=== PATIENT | male | born 1935 | race Caucasian/White ===

== ENCOUNTER 2017-01-01 11:13 | Observation (INO) | payer OTHER ==
[2017-01-01] MEDS ORDERED: ceFAZolin 2 GM/DEXTROSE 100 ML IV ONE (12:09)
--- NOTE | 2017-01-01 12:27 | PDHPUP ---
History & Physical Update H&P update statement: This history and physical update is based on an assessment of the patient which was completed after admission or registration (within 24 hours), but prior to the surgery/procedure. H&P update: H&P reviewed & patient examined, no change in patient's condition since H&P completed
[2017-01-01] MEDS ORDERED: LR 1,000 ML IV ONE (12:29)
[2017-01-01] MEDS ORDERED: LIDOCAINE 1% 2 ML INJ ID PRN (12:29)
[2017-01-01] MEDS ORDERED: THROMBIN (BOVINE) 5,000 UNIT VIAL TP ONE (14:00)
[2017-01-01] MEDS ORDERED: CHLORHEXIDINE GLUC HIBICLENS 118 ML BTL TP ONE (14:00)
[2017-01-01] MEDS ORDERED: DEPO METHYLPREDNISOLONE 40 MG/ML SDV ONE (14:01)
[2017-01-01] MEDS ORDERED: BACITRACIN 50,000 UNITS/10 ML SYR IRR ONE (14:01)
[2017-01-01] MEDS ORDERED: BUPIVACAINE/EPI 0.25% 30 ML SDV ONE (14:01)
[2017-01-01] MEDS ORDERED: PROPOFOL 200 MG/20 ML VIAL ONE ×2 (14:22→16:27)
[2017-01-01] MEDS ORDERED: ROCURONIUM 50 MG/5 ML VIAL ONE (14:22)
[2017-01-01] MEDS ORDERED: DEXAMETHASONE 4 MG/ML VIAL ONE (14:22)
[2017-01-01] MEDS ORDERED: fentaNYL 100 MCG/2 ML INJ ONE ×3 (14:22→17:35)
[2017-01-01] MEDS ORDERED: PROPOFOL/EMULSION 500 MG/50 ML BOTTLE IV ONE (14:22)
[2017-01-01] MEDS ORDERED: LIDOCAINE 2% 5 ML SDV ONE (14:22)
[2017-01-01] MEDS ORDERED: PHENYLEPHRINE HCL 100 MCG/ML SYR ONE (14:30)
[2017-01-01] MEDS ORDERED: ONDANSETRON DISINTEGRATING 4 MG TAB PO PRN (14:46)
[2017-01-01] MEDS ORDERED: oxyCODONE IR 5 MG TAB PO PRN (14:46)
[2017-01-01] MEDS ORDERED: IBUPROFEN 200 MG TAB PO PRN (14:46)
[2017-01-01] MEDS ORDERED: ACETAMINOPHEN 325 MG TAB PO PRN (14:46)
[2017-01-01] MEDS ORDERED: ONDANSETRON 4 MG/2 ML VIAL IVP PRN ×2 (14:46→14:58)
[2017-01-01] MEDS ORDERED: POLYETHYLENE GLYCOL 3350 17 GM PKT PO PRN (14:46)
[2017-01-01] MEDS ORDERED: NALOXONE HCL 0.4 MG/ML INJ IVP PRN ×2 (14:46→14:58)
[2017-01-01] MEDS ORDERED: MAGNESIUM HYDROXIDE 30 ML UDCUP PO PRN (14:46)
[2017-01-01] MEDS ORDERED: LACTULOSE 20 GM/30 ML UDCUP PO PRN (14:46)
[2017-01-01] MEDS ORDERED: BISACODYL 10 MG SUPP PR PRN (14:46)
[2017-01-01] MEDS ORDERED: METHOCARBAMOL 750 MG TAB PO PRN (14:46)
[2017-01-01] MEDS ORDERED: diphenhydrAMINE 25 MG CAP PO PRN (14:46)
[2017-01-01] MEDS ORDERED: morphINE PCA 30 MG/30 ML PCA IV PRN (14:46)
[2017-01-01] MEDS ORDERED: LR 500 ML IV PRN (14:58)
[2017-01-01] MEDS ORDERED: ACETAMINOPHEN 500 MG TAB PO PRN (14:58)
[2017-01-01] MEDS ORDERED: OXYCODONE/APAP 5/325 TAB PO PRN (14:58)
[2017-01-01] MEDS ORDERED: PROMETHAZINE HCL 25 MG/ML INJ IVP PRN (14:58)
[2017-01-01] MEDS ORDERED: HYDROCODONE/APAP 5/325 TAB PO PRN (14:58)
[2017-01-01] MEDS ORDERED: fentaNYL 100 MCG/2 ML INJ IVP PRN (14:58)
--- NOTE | 2017-01-01 14:58 | PDANEPAE ---
ANE Past Medical History - Cardiovascular History Hx Hypertension: Yes Hx Arrhythmias: No Hx Chest Pain: No Hx Coronary Artery / Peripheral Vascular Disease: No Hx CHF / Valvular Disease: No Hx Palpitations: No Cardiovascular History Comment: statin Rx - Pulmonary History Hx COPD: No Hx Asthma/Reactive Airway Disease: No Hx Recent Upper Respiratory Infection: No Hx Oxygen in Use at Home: No Hx Sleep Apnea: No Sleep Apnea Screening Result - Last Documented: Negative - Neurologic History Hx Cerebrovascular Accident: No Hx Seizures: No Hx Dementia: No - Endocrine History Hx Diabetes: Yes Hypothyroid: No Hyperthyroid: No 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 Low back pain radiates from bilat legs to bilat feet. - Cancer History Hx Cancer: Yes Cancer History Comment: bladder - Congenital Disorder History Hx Congenital Disorders: No - GI History GERD: no Hx Gastrointestinal Disorders: No - Other Health History Other Health History: gout - Chronic Pain History Chronic Pain: Yes (back,legs,ft) - Surgical History Prior Surgeries: L total knee 2006. TURBT 2012. L Rotator cuff sx. surgery on R elbow. tonsillectomy (at home) age 5 ANE Review of Systems - Exercise capacity METS (RN): 4 METS ANE Patient History - Allergies Allergies/Adverse Reactions: No Known Allergies Allergy (Unverified 12/19/16 11:40) - Home Medications Home Medications: Allopurinol [Allopurinol 100 MG (*)] 100 mg PO DAILY@79912/25/16 [Last Taken 01/01/17 05:00] Atenolol [Tenormin 100 mg (*)] 100 mg PO DAILY@79912/25/16 [Last Taken 05:00] Diltiazem HCl [Cardizem Cd] 240 mg PO DAILY@79912/25/16 [Last Taken 01/01/17 05:00] Furosemide [Lasix 20 MG (*)] 20 mg PO DAILY@79912/25/16 [Last Taken 12/31/16] Losartan Potassium [Cozaar] 100 mg PO DAILY 12/25/16 [Last Taken 01/01/17 05:00] Potassium Chloride [Klor-Con 10] 10 meq PO DAILY@0800 12/25/16 [Last Taken 12/30] Pravastatin Sodium 20 mg PO HS 12/25/16 [Last Taken 12/31/16] metFORMIN HCL [Glucophage 850 mg (*)] 850 mg PO BID@0800,1800 12/25/16 [Last Taken 12/30/16] - NPO status NPO Since - Liquids (Date): 01/01/17 NPO Since - Liquids (Time): 06:00 NPO Since - Solids (Date): 12/31/16 NPO Since - Solids (Time): 18:30 - Anes Hx Anes Hx: post operative nausea - Smoking Hx Smoking Status: Former smoker Marijuana use: No - Family Anes Hx Family Anes Hx: neg - N/A ANE Labs/Vital Signs - Vital Signs Blood Pressure: 161/62 Heart Rate: 55 Respiratory Rate: 18 O2 Sat (%): 92 Height: 176.53 cm Weight: 99.79 kg ANE Physical Exam - Airway Neck exam: decreased ROM Mallampati Score: Class 2 Mouth exam: dentures - Pulmonary Pulmonary: no respiratory distress, no rales or rhonchi, clear to auscultation - Cardiovascular Cardiovascular: regular rate and rhythym - ASA Status ASA Status: III ANE Anesthesia Plan Anesthesia Plan: general endotracheal anesthesia
[2017-01-01] MEDS ORDERED: NS 1,000 ML IV SCH (15:00)
[2017-01-01] MEDS ORDERED: epHEDrine SULFATE 10 MG/ML SYR ONE ×5 (15:27→16:39)
--- NOTE | 2017-01-01 17:13 | POSTOPPROG ---
Post Op Note Date of Operation: 01/01/17 Surgeon: Julio Roach Golf Caddy: Sara Henderson NP Anesthesiologist: Dr Jon Anesthesia: GET(General Endotracheal) Pre-op Diagnosis: Lumbar stenosis Procedure: L3-L5 laminectomy/decompression Inf/Abcess present in the surg proc area at time of surgery?: No Depth: Deep Incisional (Fascial) EBL: 100-500 Total fluids administered: see anesthesia Complications: none Date of Surgery: 01/01/17 Post Op Day: 0 Assessment/Plan: 81 yr old s/p L3-5 laminectomy/decompression for bilateral leg pain Plan: -PT/OT -Optimize pain management -Case management to assess dispo recommendations -Follow exam -Call neurosurgery with any questions/concerns Subjective: Unable to obtain, patient waking up in PACU Objective: EOMI PERRLA 5/5 BUE 5/5 BLE sensation intact to light touch BLE dressing CDI Appropriate Neuro Check Frequency Ordered: Yes
[2017-01-01] MEDS: fentaNYL 100 MCG/2 ML INJ IVP PRN ×2 (17:36→17:55)
--- NOTE | 2017-01-01 17:47 | POSTANESTH ---
Post Anesthetic Evaluation Cardiovascular Status: Similar to Pre-Op Cond Respiratory Status: Normal, Stable Level of Consciousness/Mental Status: Mildly Sleepy, Arousable Pain Control: Adequate, Prn Tx Ordered Nausea/Vomiting Control: Adequate, Prn Tx Ordered Complications Possibly Related to Anesthesia: None Noted
[2017-01-01] MEDS ORDERED: metFORMIN HCL 850 MG TAB PO SCH (18:00)
[2017-01-01] MEDS: SENNOSIDES/DOCUSATE SODIUM TAB PO SCH (20:08)
[2017-01-01] MEDS: PRAVASTATIN SODIUM 20 MG TAB PO SCH (20:10)
[2017-01-01] MEDS: FAMOTIDINE 20 MG TAB PO SCH (20:10)
[2017-01-01] MEDS: ACETAMINOPHEN 500 MG TAB PO SCH (22:30)
[2017-01-01] MEDS: ceFAZolin 2 GM/DEXTROSE 100 ML IV SCH (22:32)
--- NOTE | 2017-01-02 03:45 | GOP ---
[f rep st] OPERATIVE REPORT DATE OF OPERATION: 01/01/2017 SURGEON: Valarie Roach MD HAUNTED HISTORY TOUR GUIDE: Sara Henderson NP PREOPERATIVE DIAGNOSIS: Severe spinal stenosis L3-4, L4-5, bilateral lumbosacral radiculopathy, low back pain, L4 compression fracture. POSTOPERATIVE DIAGNOSIS: Severe spinal stenosis L3-4, L4-5, bilateral lumbosacral radiculopathy, lo w back pain, L4 compression fracture. PROCEDURE PERFORMED: Bilateral laminectomies, bilateral medial facetectomies L3-4, L4-5 with decomp ression spinal canal and bilateral recesses each level ([id number], [id number]), microscope. FINDINGS: ESTIMATED BLOOD LOSS: 150 cc. INDICATIONS: The patient is an 81-year-old gentleman who has, since August of this year, has had ter rible pain in the lower back and radiating left-sided pain with bilateral leg symptoms and weakness in the legs. An MRI demonstrated compression deformity of L4 and he underwent kyphoplasty by anothe r physician. Unfortunately, his symptoms did not really improve and this was done to help the compr ession deformity at L4, which did not worsen after the kyphoplasty but he had persistent spinal sten osis that was apparently symptomatic. He came to me for an opinion and given the weakness in his le gs as well as his severe symptoms, I suggested a decompression. He had multilevel disease and this was present both at L2-3, 3-4, 4-5, 5-1 but I suggested surgery at only 2 levels. There was no sign ificant instability but he had severe bilateral facet arthropathy and I suggested 2-level decompress ion but he understood he had other levels of the spine that may require attention. I did not think he would tolerate a more extensive spine surgery so we set out to try to help him with the smallest reasonable approach. The risk of CSF leak, continued symptoms, and nerve injury were discussed. Th elsa understood that at his age there was some measurable chance of surgical complications that could ultimately result in his and they accepted these risks. DESCRIPTION OF PROCEDURE: The patient was taken to the operating room, placed in supine position. General anesthesia was begun. He was flipped prone onto the [place] frame. Care was taken to pad al l points of contact. His back was sterilely prepped and draped in usual fashion. A localizing x-ra y was taken. We made a 3-1/2 cm incision above the L3-4, L4-5 interspace the subcutaneous tissue wa s dissected using Bovie cautery down through the fascia and a subperiosteal dissection was made down the lamina of L3, L4, and the rostral L5 lamina. Self-retaining retractor was placed. A localizin g x-ray was taken. We removed the L4 spinous process and the inferior L3 spinous process. We prese rved most of the L3 spinous process. We preserved really all of the L5 spinous process. Under the operating microscope, we drilled bilateral laminectomies L3-4, L4-5 and opened ligamentum flavum and decompressed the thecal sac. There was really remarkable bilateral facet arthropathy. We undercut the facets and decompressed from pedicle wall to pedicle wall on the midportion of the L5 pedicle u p through the L4 pedicle all the way to the inferior L3 pedicle. We undercut the L3 lamina substant ially and performed a significant decompression there. We did not disrupt any of the facet joints; they were intact when we were finished. We irrigated large amounts of antibiotic saline, shot a fin al x-ray confirming the extent of our decompression. We then closed the incision in multiple layers using Vicryl sutures. COMPLICATIONS: None. /[id number]/MODL
[2017-01-02] MEDS: ACETAMINOPHEN 500 MG TAB PO SCH ×3 (05:18→20:27)
[2017-01-02] MEDS: ceFAZolin 2 GM/DEXTROSE 100 ML IV SCH (05:18)
[2017-01-02 05:41] LABS: % IMMATURE GRANULYOCYTES 0.6 % (0.0-1.1); ABSOLUTE IMMATURE GRANULOCYTES 0.07 10^3/uL (0.00-0.10); ADD DIFF? NO; ADD MORPH? NO; ADD SCAN? NO; ATYPICAL LYMPHOCYTE FLAG 0 (0-99); FRAGMENT RBC FLAG 0 (0-99); HEMOGLOBIN 11.8 g/dL (13.7-17.5); LEFT SHIFT FLG 10 (0-99); LIPEMIA HEMOLYSIS FLAG 80 (0-99); MEAN CELL HEMOGLOBIN CONCENTR. 33.7 g/dL (32.4-36.7); MEAN CELL VOLUME 97.8 fL (81.5-99.8); MEAN PLATELET VOLUME 9.7 fL (8.7-11.7); PLATELET CLUMPS FLAG 0 (0-99); PLATELET COUNT 244 10^3/uL (150-400); RED BLOOD CELL COUNT 3.58 10^6/uL (4.40-6.38); RED CELL DISTRIBUTION WIDTH 13.9 % (11.5-15.2)
[2017-01-02 05:52] LABS: ANION GAP 9 mEq/L (8-16); CALCIUM 8.9 mg/dL (8.5-10.4); CARBON DIOXIDE 24 mEq/l (22-31); CHLORIDE 104 mEq/L (97-110); CREATININE 0.9 mg/dL (0.7-1.3); GLOMERULAR FILTRATION RATE > 60; GLUCOSE 156 mg/dL (70-100); POTASSIUM 4.3 mEq/L (3.5-5.2); SODIUM 137 mEq/L (134-144)
--- NOTE | 2017-01-02 07:52 | NEUSURGPN ---
Date of Surgery: 01/01/17 Post Op Day: 1 Assessment/Plan: 81 yr old s/p L3-5 laminectomy/decompression for bilateral leg pain POD#1 Plan: -Leg pain improved, some left lateral thigh pain still present -PT/OT -Optimize pain management -Dressing was changed last night due to saturation -Possible discharge home tomorrow, patient has daughter and grand daughter at home to help -Follow exam -Call neurosurgery with any questions/concerns Subjective: Patient resting comfortably Objective: AxO x3 EOMI PERRLA 5/5 BUE 5/5 BLE sensation intact to light touch BLE dressing DI-some dried drainage Neuro Check Frequency: per routine Urinary Catheter in Place: No - Physician Discussed Patient with : Doc Patient Seen by : Doc Neurosurgery Physical Exam - Vitals, I&O, Labs I and O 01/01/17 01/02/17 01/03/17 05:59 05:59 05:59 Intake Total 2009 Output Total 400 300 Balance 1610 -300 Weight 99.79 kg Intake: Oral (ml) 260 IV Intake (ml) 1750 Output: Urine (ml) 250 300 Urinal 250 300 Estimated Blood Loss (ml) 150 Other: Bladder Scan Volume (ml) 154 Urinal 265 Post Void Residual Scan Volume (ml) Urinal 0 Vital Signs Temp Pulse Resp BP Pulse Ox 36.5 C 56 L 15 139/66 H 96 01/02/17 07:47 01/02/17 07:47 01/02/17 07:47 01/02/17 07:47 01/02/17 07:47 Laboratory Results 01/02/17 05:00 01/02/17 05:00 ICD10 Worksheet Patient Problems: Problems Problem Status Onset Lumbar stenosis with neurogenic claudication Acute - ICD10 Problem Qualifiers (1) Lumbar stenosis with neurogenic claudication
[2017-01-02] MEDS: POTASSIUM CL 10 MEQ TAB PO SCH (08:15)
[2017-01-02] MEDS: oxyCODONE IR 5 MG TAB PO PRN ×3 (08:16→20:28)
[2017-01-02] MEDS: ALLOPURINOL 100 MG TAB PO SCH (08:18)
[2017-01-02] MEDS: ATENOLOL 100 MG TAB PO SCH (08:19)
[2017-01-02] MEDS: LOSARTAN POTASSIUM 50 MG TAB PO SCH (08:19)
[2017-01-02] MEDS: SENNOSIDES/DOCUSATE SODIUM TAB PO SCH ×2 (08:19→20:27)
[2017-01-02] MEDS: FAMOTIDINE 20 MG TAB PO SCH ×2 (08:19→20:28)
[2017-01-02] MEDS: FUROSEMIDE 20 MG TAB PO SCH (08:19)
[2017-01-02] MEDS: metFORMIN HCL 850 MG TAB PO SCH ×2 (10:18→17:51)
[2017-01-02] MEDS: DILTIAZEM XR 240 MG CAP PO SCH (10:21)
[2017-01-02] MEDS ORDERED: HYDROCODONE/APAP 10/325 TAB PO PRN (11:22)
[2017-01-02] MEDS: GABAPENTIN 100 MG CAP PO SCH ×2 (16:39→20:26)
[2017-01-02] MEDS ORDERED: metFORMIN HCL 850 MG TAB PO SCH (18:00)
[2017-01-02] MEDS: PRAVASTATIN SODIUM 20 MG TAB PO SCH (20:28)
[2017-01-03] MEDS: oxyCODONE IR 5 MG TAB PO PRN ×2 (06:03→11:24)
[2017-01-03] MEDS: ACETAMINOPHEN 500 MG TAB PO SCH (06:03)
[2017-01-03 06:05] VITALS: RESP 15
[2017-01-03 07:51] VITALS: BP 119/63; PULSE 52; TEMP 98
[2017-01-03] MEDS: FAMOTIDINE 20 MG TAB PO SCH (08:04)
[2017-01-03] MEDS: SENNOSIDES/DOCUSATE SODIUM TAB PO SCH (08:04)
[2017-01-03] MEDS: ATENOLOL 100 MG TAB PO SCH (08:06)
[2017-01-03] MEDS: DILTIAZEM XR 240 MG CAP PO SCH (08:06)
[2017-01-03] MEDS: GABAPENTIN 100 MG CAP PO SCH (08:06)
[2017-01-03] MEDS: LOSARTAN POTASSIUM 50 MG TAB PO SCH (08:06)
[2017-01-03] MEDS: FUROSEMIDE 20 MG TAB PO SCH (08:07)
[2017-01-03] MEDS: ALLOPURINOL 100 MG TAB PO SCH (08:07)
[2017-01-03] MEDS: metFORMIN HCL 850 MG TAB PO SCH (08:09)
[2017-01-03] MEDS: POTASSIUM CL 10 MEQ TAB PO SCH (08:18)
--- NOTE | 2017-01-03 08:33 | NEUSURGPN ---
Date of Surgery: 01/01/17 Post Op Day: 2 Assessment/Plan: 81 yr old s/p L3-5 laminectomy/decompression for bilateral leg pain POD#2 Plan: -Leg pain improved, minimal back pain -PT/OT -Dressing removed, applied extra steri strips to reinforce, ok to leave dressing off -Discharge home today, daughter will pick patient up to bring home -Prescriptions on chart -Follow up in office in 2 weeks -Call neurosurgery with any questions/concerns Subjective: Patient denies leg pain Objective: AxO x3 EOMI PERRLA 5/5 BUE 5/5 BLE Dressing removed, re inforced steri strips, CDI Neuro Check Frequency: per routine Urinary Catheter in Place: No - Physician Discussed Patient with Dr.: Doc Patient Seen by : Doc Neurosurgery Physical Exam - Vitals, I&O, Labs I and O 01/02/17 01/03/17 01/04/17 05:59 05:59 05:59 Intake Total 2010 950 Output Total 400 700 Balance 1610 250 Weight 99.79 kg Intake: Oral (ml) 260 950 IV Intake (ml) 1750 Output: Urine (ml) 250 700 Toilet 400 Urinal 250 300 Estimated Blood Loss (ml) 150 Other: Intake Quantity Yes Sufficient Number of Voids Toilet 1 Bladder Scan Volume (ml) 154 Urinal 265 Post Void Residual Scan Volume (ml) Urinal 0 Vital Signs Temp Pulse Resp BP Pulse Ox 36.7 C 52 L 15 119/63 93 01/03/17 07:46 01/03/17 07:46 01/03/17 07:46 01/03/17 07:46 01/03/17 07:46 Laboratory Results 01/02/17 05:00 01/02/17 05:00 ICD10 Worksheet Patient Problems: Problems Problem Status Onset Lumbar stenosis with neurogenic claudication Acute - ICD10 Problem Qualifiers (1) Lumbar stenosis with neurogenic claudication
[2017-01-03 10:38] VITALS: O2SAT 92
[2017-01-04] MEDS ORDERED: ENOXAPARIN 40 MG/0.4 ML SYR SC SCH (09:00)
== END 2017-01-03 11:35 | disposition home or self-care (01) ==
LOC: F3N 11:13 → EDSTATUS 14:00 → F3N 18:30
PROVIDERS: ADMIT Neurological Surgery; ATTEND Neurological Surgery
PROC: 00NY0ZZ Release Lumbar Spinal Cord, Open Approach (ICD-10-PCS; principal; 2017-01-01 14:00)
PROC: 0SB00ZZ Excision of Lumbar Vertebral Joint, Open Approach (ICD-10-PCS; principal; 2017-01-01 14:00)
DX: M48.06 Spinal stenosis, lumbar region (principal); M54.16 Radiculopathy, lumbar region; M48.56XD Collapsed vertebra, not elsewhere classified, lumbar region, subsequent encounter for fracture with routine healing; E11.9 Type 2 diabetes mellitus without complications; Z96.662 Presence of left artificial ankle joint
CPT/HCPCS: 63047; 63048; 76001; 97116; 97161; 97165; 97530; 97535; G0378; G8978; G8979; G8987; G8988; G8989; J0690; J1030; J1100; J2370; J2704; J3010